=== PATIENT | female | born 2000 | race Hispanic/Latino ===

== ENCOUNTER 2023-01-09 12:31 | Emergency (ER) | payer SELFPAY ==
[~2023-01-09] VITALS: Ht 162.6 cm; Wt 63.8 kg
[2023-01-09 12:47] VITALS: BP 120/85
[2023-01-09 13:00] VITALS: BP 105/69
[2023-01-09 13:13] LABS: URINE BILIRUBIN - DIPSTICK NEGATIVE (NEGATIVE); URINE BLOOD DIPSTICK SMALL (NEGATIVE); URINE COLOR YELLOW; URINE GLUCOSE - DIPSTICK NEGATIVE (NEGATIVE); URINE KETONE NEGATIVE (NEGATIVE); URINE LEUK ESTERASE TRACE (NEGATIVE); URINE PH 7.5 (4.5-8.0); URINE PROTEIN - DIPSTICK TRACE mg/dL (NEG-TRACE); URINE UROBILINOGEN - DIPSTICK 0.2 E.U./dL (0.2)
[2023-01-09 13:14] LABS: URINE NITRITE - DIPSTICK POSITIVE (Negative)
[2023-01-09 13:18] LABS: URINE BACTERIA MANY hpf; URINE WBC 20-50 WBC/hpf (0-5)
[2023-01-09 13:20] LABS: URINE SQUAMOUS EPITHELIAL CELL MODERATE EPI/hpf (0-FEW)
[2023-01-09 13:30] VITALS: BP 102/70
[2023-01-09 13:54] LABS: BASO% 0.9 % (0-3); HEMATOCRIT 40.9 % (37.0-47.0); HEMOGLOBIN 12.7 g/dl (12.0-16.0); IMMATURE GRANULOCYTES 0.5 % (0.0-5.0); LYMPH% 21.1 % (15-41); MEAN CELL VOLUME 92.7 fL CALC (80.0-100.0); MEAN CORPUSCULAR HGB 28.8 pG CALC (26.0-32.0); MEAN CORPUSCULAR HGB CONC 31.1 g/dL CAL (32.0-36.0); MONO% 4.5 % (2-13); NEUT# 5.8 thou/uL (2.00-7.15); RED BLOOD COUNT 4.41 mill/uL (4.20-5.60); RED CELL DISTRI WIDTH 12.8 % (11.5-15.5)
[2023-01-09 14:00] VITALS: BP 109/70
[2023-01-09] MEDS ORDERED: DIFLUCAN150 MG PO (14:05)
[2023-01-09] MEDS ORDERED: CEFDINIR300 MG PO (14:05)
[2023-01-09] MEDS ORDERED: METRONIDAZOLE500 MG PO (14:05)
[2023-01-09 14:06] LABS: ALBUMIN 4.6 g/dL (3.2-5.0); ALKALINE PHOSPHATASE 98 u/l (38-126); ANION GAP 13 (6-22 (CALC)); BILIRUBIN, TOTAL 0.6 mg/dL (0.02-1.3); BUN 8 mg/dL (7-17); BUN/CREATININE RATIO 14 (12-20 (CALC)); CARBON DIOXIDE 24 mmol/l (22-30); CHLORIDE 107 mmol/l (95-108); CREATININE 0.6 mg/dL (0.5-1.0); GFR FOR AFR.AMER. > 60 ML/MIN (>=60 (CALC)); GFR OTHER RACES > 60 ML/MIN (>=60 (CALC)); POTASSIUM 4.6 mmol/l (3.5-5.1); SGOT/AST 89 u/l (14-36); SODIUM 140 mmol/l (137-146); TOTAL PROTEIN 7.6 g/dL (6.3-8.2)
[2023-01-09 14:25] VITALS: BP 109/70
== END 2023-01-09 14:40 | disposition home or self-care (01) | DRG 758 ==
LOC: ED 12:31
PROVIDERS: Family Medicine
DX: N76.0 Acute vaginitis (principal); N39.0 Urinary tract infection, site not specified

== ENCOUNTER 2023-02-19 13:31 | Emergency (ER) | payer SELFPAY ==
[~2023-02-19] VITALS: Ht 162.6 cm; Wt 64.2 kg
[~2023-02-19 13:31] MED LIST: CEFDINIR300 MG PO; DIFLUCAN150 MG PO; METRONIDAZOLE500 MG PO
[2023-02-19 14:17] VITALS: BP 108/68
[2023-02-19 14:30] VITALS: BP 110/68
[2023-02-19 14:49] LABS: URINE BILIRUBIN - DIPSTICK NEGATIVE (NEGATIVE); URINE BLOOD DIPSTICK TRACE-INTACT (NEGATIVE); URINE COLOR YELLOW; URINE GLUCOSE - DIPSTICK 250 mg/dL (NEGATIVE); URINE KETONE NEGATIVE (NEGATIVE); URINE LEUK ESTERASE NEGATIVE (NEGATIVE); URINE PROTEIN - DIPSTICK NEGATIVE (NEG-TRACE); URINE SPECIFIC GRAVITY >=1.030; URINE UROBILINOGEN - DIPSTICK 0.2 E.U./dL (0.2)
[2023-02-19 14:50] LABS: URINE NITRITE - DIPSTICK NEGATIVE (Negative)
[2023-02-19 14:55] VITALS: BP 110/68
== END 2023-02-19 14:59 | disposition home or self-care (01) | DRG 761 ==
LOC: ED 13:31
PROVIDERS: Family Medicine
DX: N89.8 Other specified noninflammatory disorders of vagina (principal); J45.909 Unspecified asthma, uncomplicated